=== PATIENT | male | born 1935 | race Caucasian/White ===

== ENCOUNTER 2017-01-06 17:35 | Emergency (ER) | payer MEDICARE, OTHER ==
[2017-01-06] MEDS ORDERED: 0.9 % SODIUM CHLORIDE 1,000 ML IV ONE (18:46)
[2017-01-06 19:04] LABS: eGFR (African) 41; eGFR (Non-African) 34
[2017-01-06 19:45] LABS: BASOPHILS % 0.2 (0.0-1.5); EOSINOPHILS % 8.7 % (0.0-6.8); MEAN CORPUSCULAR HEMOGLOBIN 28.4 pg (28.0-34.0); MONOCYTES # 0.9 # k/uL (0.0-0.9); MONOCYTES % 10.6 % (0.0-11.0); NEUTROPHILS # 5.3 # k/uL (1.4-7.7)
[2017-01-06] MEDS ORDERED: LORazepam 2 MG/ML VIAL ONE (21:04)
[2017-01-06] MEDS ORDERED: HALOPERIDOL LACTATE 5 MG/ML VIAL IM ONE (21:05)
[2017-01-06] MEDS: LORazepam 2 MG/ML VIAL IVP ONE (21:15)
[2017-01-06] MEDS: HALOPERIDOL LACTATE 5 MG/ML VIAL IM ONE ×2 (21:15→21:30)
[2017-01-06] MEDS: 0.9 % SODIUM CHLORIDE 1,000 ML IV SCH (21:19)
--- NOTE | 2017-01-06 21:45 | ED Physician Documentation ---
Psychological Disorders - HISTORIAN Historian: patient, child (nephews) - HPI Stated Complaint: hallucinations and aggressive behavior Chief Complaint: Psychological Disorder Additional Information: past 2-3 days more confused hostile w/hallucinations Onset: days ago (2) Duration: intermittent Intent: wants to escape. denies: prior thoughts of suicide Severity: mild, moderate (occasionally abusive to nursing staff. 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 pt denies c/o-remains confused picks at clothing gets out of bed wanders plays w/equipment in ed room./ occasionally hostile to nephews when they try to control him) EYES/ENT: none CVS/RESP: none GI/: denies: nausea, vomiting, abdominal pain, problems urinating MS/SKIN/LYMPH: denies: joint pain, leg swelling, rash - PAST HX Psychiatric problems: depression, psychiatric problems Lung, Cardiac, DM: asthma (DEMENTIA CVA HYPERLIPIDEMIA). denies: A-Fib Allergies/Adverse Reactions: Allergies Allergy/AdvReac Type Severity Reaction Status Date / Time No Known Allergies Allergy Verified 01/06/17 20:09 Home Medications: Ambulatory Orders Medication Instructions Recorded Simvastatin [Simvastatin] 40 mg PO DAILY 06/12/14 Meloxicam [Mobic] 7.5 mg PO DAILY 09/23/16 Docusate Sodium [Colace] 100 mg PO BID 01/06/17 Haloperidol [Haldol] 1 mg PO BID #60 tablet 01/06/17 LORazepam [Ativan] 0.5 mg PO Q4 PRN 01/06/17 Melatonin [Melatonin] 5 mg PO HS 01/06/17 Polyethylene Glycol 3350 [Miralax] 17 gm PO D PRN 01/06/17 QUEtiapine FUMARATE [Seroquel] 12.5 mg PO BID 01/06/17 Warfarin Sodium [Coumadin] 2.5 mg PO [id number] 01/06/17 Warfarin Sodium [Coumadin] 5 mg PO SAT18 01/06/17 Warfarin Sodium [Coumadin] 5 mg PO HENDERSON 01/06/17 - Social HX Smoking History: non-smoker Marital Status: single (NEVER STD DETERIORATION APPROX 1-2 YRS AGO IN 2- 3 [facility]. GRADUAL DETERIORATION) Drug Use: none - Family HX Family HX: denies: other - VITAL SIGNS Vital Signs: Vital Signs Temp Pulse Resp BP Pulse Ox 98.5 F 85 16 116/71 98 01/06/17 18:13 01/06/17 18:13 01/06/17 18:13 01/06/17 18:13 01/06/17 18:13 - REVIEWED ASSESSMENTS Nursing Assessment Reviewed: Yes Vitals Reviewed: Yes ED Results Lab/Radiology - Lab Results Lab Results: Lab Results 01/06/17 01/06/17 01/06/17 19:41 19:36 18:30 WBC 8.10 K/ul K/ul (4.00-12.00) RBC 4.40 M/ul M/ul (3.90-5.20) Hgb 12.5 g/dL g/dL (12.0-18.0) Hct 40.2 % % (37.0-53.0) MCV 91.3 fl fl (80.0-100.0) MCH 28.4 pg pg (28.0-34.0) MCHC 31.2 g/dL g/dL (30.0-36.0) RDW 13.7 % % (11.3-14.3) Plt Count 158 K/mm3 K/mm3 (130-400) Neut % (Auto) 65.3 % % (39.0-79.0) Lymph % (Auto) 12.6 % L % (16.0-50.0) [place] % (Auto) 10.6 % % (0.0-11.0) Eos % (Auto) 8.7 % H % (0.0-6.8) Baso % (Auto) 0.2 (0.0-1.5) Neut # 5.3 # k/uL # k/uL (1.4-7.7) Lymph # 1.0 # k/uL # k/uL (0.6-4.0) [place] # 0.9 # k/uL # k/uL (0.0-0.9) Eos # 0.7 # k/uL H # k/uL (0.0-0.6) Baso # 0.0 # k/uL # k/uL (0.0-0.5) Reactive Lymphs % 2.5 % % (0.0-5.0) Reactive Lymphs # 0.2 # k/uL # k/uL (0.0-0.8) PT 19.7 Seconds H Seconds (9.7-11.5) INR 1.8 H (0.9-1.1) Sodium 140 mmol/L mmol/L (136-145) Potassium 5.4 mmol/L H mmol/L (3.5-5.0) Chloride 108 mmol/L mmol/L (98-110) Carbon Dioxide 24 mmol/L mmol/L (20-32) BUN 43 mg/dL H mg/dL (10-26) Creatinine 2.0 mg/dL H mg/dL (0.4-1.5) Estimated Creat Clear 23 Est GFR ( Amer) 41 L (60 - ) Est GFR (Non-Af Amer) 34 L (60 - ) Glucose 100 mg/dL H mg/dL (70-99) Calcium 9.5 mg/dL mg/dL (8.5-10.5) Total Bilirubin 0.8 mg/dL mg/dL (0.2-1.2) AST 23 U/L U/L (0-41) ALT 14 U/L U/L (0-45) Alkaline Phosphatase 63 U/L U/L (46-116) Total Protein 7.6 g/dL g/dL (6.0-8.5) Albumin 4.7 g/dL g/dL (3.0-5.5) Ethyl Alcohol < 10.0 MG/DL MG/DL (<10.0) - Radiology Radiology Impressions: CXCXR =NO ACUTE DISEASE VERY MARKED DORSAL KYPHOSIS-PROBABLE HYPER INFLATION COPD - Orders Orders: ED Orders Category Date Time Status Place Saline Lock/IV Now Care 01/06/17 18:29 Active CHEST P.A.&LAT 2 VIEWS [RAD] Stat Exams 01/06/17 Taken ARTERIAL BLOOD GAS Stat Lab 01/06/17 18:32 Ordered CBC/PLATELET/DIFF Routine Lab 01/06/17 19:41 Completed CMP Routine Lab 01/06/17 18:30 Completed DRUG SCREEN URINE MEDICAL ONLY Routine Lab 01/06/17 Ordered ETHANOL MEDICAL USE ONLY Routine Lab 01/06/17 18:30 Completed PT-INR Routine Lab 01/06/17 19:36 Completed URINALYSIS Stat Lab 01/06/17 Ordered 0.9 % Sodium Chloride [Normal Saline] 1,000 ml Med 01/06/17 18:30 Ordered IV 1T Haloperidol Lactate [Haldol] Med 01/06/17 21:04 Discontinued 1 mg IM NOW ONE Haloperidol Lactate [Haldol] Med 01/06/17 21:27 Discontinued 1 mg IM NOW ONE Haloperidol Lactate [Haldol] Med 01/06/17 21:05 Discontinued 5 mg IM .STK-MED ONE LORazepam [Ativan] Med 01/06/17 21:03 Discontinued 0.5 mg IVP NOW ONE LORazepam [Ativan] Med 01/06/17 22:09 Once 1 mg PO NOW ONE LORazepam [Ativan] Med 01/06/17 21:04 Discontinued 2 mg .ROUTE .STK-MED ONE EKG WITH COMPARISON Stat Ther 01/06/17 Ordered Psych Physical Exam - Physical Exam General Appearance: mild distress, anxious. No: uncooperative for exam ENT: nml ENT inspection Eyes: PERRL Mental Status: slow responsiveness, disoriented, depressed affect / mood (PT DENIES ANY C/O WHATSOEVER). No: suicidal ideation Orientation: No: uncooperative (SOMEWHAT BUT CONTROLLABLE HERE -- SPOKE W/[facility] NURSE AND HE HAS BECOME PROGRESSIVELY MMORE AGGRESSIVE PAST 2/3 DAYS BUT REPORTEDLY HAS HAD SIMILAR PREV EPISODES - ONCE W/UTI) Sensory, Motor: nml motor response Neck/Back: other (SITS W/HEAD SHOULDERS SLUMPED SIG TOWARD FLOOR) Respiratory: no resp distress, chest non-tender, breath sounds normal CVS: reg rate & rhythm, heart sounds normal Abdomen: non-tender Skin: warm/dry, normal color. No: cyanosis, diaphoresis, jaundice Extremities: non-tender Discharge Clincal Impression: ADVANCING DEMENTIA, INTERMITTENT HOSTILITY AND AGGRESSIVE BE Prescriptions: Haloperidol [Haldol] 1 mg PO BID #60 tablet Referrals: Marvin Danielle MD [Primary Care Provider] - 2 Days Home Medications: Ambulatory Orders Simvastatin [Simvastatin] 40 mg PO DAILY 06/12/14 Meloxicam [Mobic] 7.5 mg PO DAILY 09/23/16 Docusate Sodium [Colace] 100 mg PO BID 01/06/17 Haloperidol [Haldol] 1 mg PO BID #60 tablet 01/06/17 LORazepam [Ativan] 0.5 mg PO Q4 PRN 01/06/17 Melatonin [Melatonin] 5 mg PO HS 01/06/17 Polyethylene Glycol 3350 [Miralax] 17 gm PO D PRN 01/06/17 QUEtiapine FUMARATE [Seroquel] 12.5 mg PO BID 01/06/17 Warfarin Sodium [Coumadin] 2.5 mg PO [id number] 01/06/17 Warfarin Sodium [Coumadin] 5 mg PO SAT18 01/06/17 Warfarin Sodium [Coumadin] 5 mg PO HENDERSON 01/06/17 Comments: JESSICA COREGINO W/ N/H NURSE FAMILY AND DR DANIELLE.. WILL TNSF BACK TO [facility] SEROQUEL ADD LO DOSE HALDOL Condition: Fair Disposition: 01 HOME, SELF-CARE Decision to Admit: NO Decision Time: 22:12
[2017-01-06] MEDS: LORazepam 1 MG TABLET PO ONE (22:19)
[2017-01-06 23:13] VITALS: BP 138/73
[2017-01-07 07:28] LABS: AMPHETAMINE NEGATIVE ng/mL (<1000); BARBITURATES NEGATIVE ng/mL (<300); CANNABINOIDS NEGATIVE ng/mL (<50); COCAINE NEGATIVE ng/mL (<150); METHAMPHETAMINE NEGATIVE ng/mL (<1000); METHYLENEDIOXYMETHAMPHETAMINE NEGATIVE ng/mL (<500)
[2017-01-07 07:34] LABS: APPEARANCE,URINE CLEAR (CLEAR); COLOR,URINE YELLOW (YELLOW); OCCULT BLOOD,URINE TRACE-INTACT (NEGATIVE); PH URINE 5.5 (5.0 - 8.0); UROBILINOGEN URINE 0.2 Eu (0.2-1.0)
--- NOTE | 2017-01-07 15:47 | Diagnostic Imaging Report ---
ASTON LOPEZ [facility] [address] [facility] [address] [address] Report Submission Date: Jan 06, 2017 7:28:26 PM GALLERY ASSISTANT Patient Study Name: CHRISTIANO DAVIS Date: Jan 06, 2017 7:07:27 PM GALLERY ASSISTANT Modality Type: CR Gender: M Description: CHEST : 33 Institution: [facility] Physician: ASTON LOPEZ HISTORY: 81-year-old male with cough and confusion. COMPARISON: None available. TECHNIQUE: AP and lateral views of the chest were performed. FINDINGS: The right lung apex is not completely evaluated secondary to overlying head and neck tissues. The lungs are hyperexpanded. No pneumothorax , consolidative infiltrates, pleural effusions, or pulmonary edema. The heart is borderline enlarged. There is thoracic spondylosis and exaggerated thoracic kyphosis, without evidence of thoracic spine fracture. IMPRESSION: 1. Pulmonary hyperexpansion without evidence of acute intrathoracic process. 2. Thoracic spondylosis and exaggerated thoracic kyphosis. Electronically signed on Jan 06, 2017 7:28:26 PM GALLERY ASSISTANT by: David VELEZ
== END 2017-01-06 22:35 | disposition home or self-care (01) ==
LOC: ED 17:35
DX: F03.91 Unspecified dementia, unspecified severity, with behavioral disturbance (principal)
CPT/HCPCS: 71020; 80053; 81002; 85025; 85610; G0480; G0481; J1630; J2060; J7030; 36600; 80320; 80377; 96372; 96374; 99283; S1016

== ENCOUNTER 2017-03-03 08:48 | Emergency (ER) | payer MEDICARE, OTHER ==
[2017-03-03] MEDS ORDERED: LORazepam 1 MG TABLET PO ONE ×2 (09:50→09:58)
--- NOTE | 2017-03-03 10:02 | ED Physician Documentation ---
Fall - HISTORIAN Historian: patient, child - HPI Chief Complaint: Fall Additional Information: pt fell in bath room last noct w bleeding rt lat head and rt ear-VERY SMALL LAC BOTH POSN BUT INTERMITTENT BLEEDING. pt dementia and combative but nephews asst w/ calming and restraint while cleanse betadine and dermabond to both head and ear. pt rec tetanus immun few weeks ago from prev falls. Onset: yesterday Where: home Context: lost balance r: mild Associated Symptoms:: no loss of consciousness Location of Pain/Injury: head, other (rt ear) Injury to Right Extremity: none Injury to Left Extremity: none Further Comments: no - ROS CONST: other (dementia prev cva combative blind) NEURO: anxiety. denies: dizziness MS/SKIN/LYMPH: denies: weakness, numbness, neck pain CVS/RESP: none. denies: shortness of breath - PAST HX Past History: other (htn dementia combative and un cooperative-prev on haldol but now on ativan w/ only mild control. pt also had prev CVA) Allergies/Adverse Reactions: Allergies Allergy/AdvReac Type Severity Reaction Status Date / Time No Known Allergies Allergy Verified 01/06/17 20:09 Home Medications: Ambulatory Orders Medication Instructions Recorded Simvastatin [Simvastatin] 40 mg PO DAILY 06/12/14 Meloxicam [Mobic] 7.5 mg PO DAILY 09/23/16 Docusate Sodium [Colace] 100 mg PO BID 01/06/17 Haloperidol [Haldol] 1 mg PO BID #60 tablet 01/06/17 LORazepam [Ativan] 0.5 mg PO Q4 PRN 01/06/17 Melatonin [Melatonin] 5 mg PO HS 01/06/17 Polyethylene Glycol 3350 [Miralax] 17 gm PO D PRN 01/06/17 QUEtiapine FUMARATE [Seroquel] 12.5 mg PO BID 01/06/17 Warfarin Sodium [Coumadin] 2.5 mg PO [id number] 01/06/17 Warfarin Sodium [Coumadin] 5 mg PO SAT18 01/06/17 Warfarin Sodium [Coumadin] 5 mg PO HENDERSON 01/06/17 - SOCIAL HX Smoking History: non-smoker Alcohol Use: none Drug Use: none - FAMILY HX Family History: no significant history - VITAL SIGNS Vital Signs: Vital Signs Temp Pulse Resp BP Pulse Ox 138/73 01/06/17 23:06 - REVIEWED ASSESSMENTS Nursing Assessment Reviewed: Yes Vitals Reviewed: Yes Procedures Wound Location: head, other (rt ear as aforementioned) Wound's Depth, Shape: superficial, stellate Wound Explored: cleanse w/ betadine Betadine Prep?: Yes Wound Repaired With: Dermabond Sterile Dressing Applied?: No Splint Applied?: No Sling Applied?: No ED Results Lab/Radiology - Orders Orders: ED Orders Category Date Time Status Skin Adhesive NOW Care 03/03/17 10:00 Ordered URINALYSIS Routine Lab 03/03/17 Ordered LORazepam [Ativan] Med 03/03/17 09:50 Discontinued 1 mg PO .STK-MED ONE LORazepam [Ativan] Med 03/03/17 09:58 Once 1 mg PO NOW ONE Fall Physical Exam - Physical Exam General Appearance: mild distress, anxious (CONFUSED AND COMBATIVER BUT FAIR CONTROL W/ASST NEPHEW) Head: No: no obvious injury (0.7 triangular lac rt lat head plus 0.5 cm lac lat crease rt ear helix) Neck: non-tender, painless ROM, trachea midline. No: decreased ROM, limited ROM , pain with neck movement ENT: nml external inspection Resp/CVS: chest non-tender, no ecchymosis, breath sounds nml, no resp. distress , heart sounds nml. 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 No: mood/affect nml Skin: color nml, no rash. No: cyanosis, diaphoresis, pallor Back: normal inspection - [place] Coma Score Eyes Open: Spontaneous Speech: Confused Motor: Withdraws to Pain Discharge Clincal Impression: Dementia, Fall Home Medications: Ambulatory Orders Simvastatin [Simvastatin] 40 mg PO DAILY 06/12/14 Meloxicam [Mobic] 7.5 mg PO DAILY 09/23/16 Docusate Sodium [Colace] 100 mg PO BID 01/06/17 Haloperidol [Haldol] 1 mg PO BID #60 tablet 01/06/17 LORazepam [Ativan] 0.5 mg PO Q4 PRN 01/06/17 Melatonin [Melatonin] 5 mg PO HS 01/06/17 Polyethylene Glycol 3350 [Miralax] 17 gm PO D PRN 01/06/17 QUEtiapine FUMARATE [Seroquel] 12.5 mg PO BID 01/06/17 Warfarin Sodium [Coumadin] 2.5 mg PO [id number] 01/06/17 Warfarin Sodium [Coumadin] 5 mg PO SAT18 01/06/17 Warfarin Sodium [Coumadin] 5 mg PO HENDERSON 01/06/17 Comments: fall w/ laceration rt lat head and rt ear Condition: Good Disposition: 01 HOME, SELF-CARE Decision to Admit: NO Decision Time: 10:20
[2017-03-03 10:08] VITALS: BP 144/79
== END 2017-03-03 10:19 | disposition home or self-care (01) ==
LOC: ED 08:48
DX: S01.311A Laceration without foreign body of right ear, initial encounter (principal); F03.91 Unspecified dementia, unspecified severity, with behavioral disturbance; W19.XXXA Unspecified fall, initial encounter; Z91.81 History of falling; Y93.9 Activity, unspecified; Y99.9 Unspecified external cause status
CPT/HCPCS: 99284

== ENCOUNTER 2017-03-03 12:58 | Emergency (ER) | payer MEDICARE, OTHER ==
[2017-03-03] MEDS ORDERED: HALOPERIDOL LACTATE 5 MG/ML VIAL IM ONE ×4 (13:14→13:42)
[2017-03-03] MEDS ORDERED: LORazepam 2 MG/ML VIAL ONE (14:29)
[2017-03-03 14:40] LABS: BASOPHILS % 0.3 (0.0-1.5); EOSINOPHILS % 9.9 % (0.0-6.8); MEAN CORPUSCULAR HEMOGLOBIN 29.4 pg (28.0-34.0); MEAN CORPUSCULAR VOLUME 92.3 fl (80.0-100.0); MONOCYTES % 7.4 % (0.0-11.0); NEUTROPHILS # 5.6 # k/uL (1.4-7.7)
[2017-03-03] MEDS ORDERED: LORazepam 2 MG/ML VIAL IVP ONE ×2 (14:57→15:00)
[2017-03-03] MEDS ORDERED: 0.9 % SODIUM CHLORIDE 1,000 ML IV ONE ×2 (15:22→15:23)
--- NOTE | 2017-03-03 15:39 | Diagnostic Imaging Report ---
[facility] [address] [facility] [address] Report Submission Date: Mar 03, 2017 3:30:00 PM CDT Patient Study Name: CHRISTIANO DAVIS Date: Mar 03, 2017 3:10:01 PM CDT Modality Type: CT\SR Gender: M Description: CT BRAIN W/O CONTRAST : 33 Institution: [facility] Physician: ASTON LOPEZ CT brain noncontrast Date of study: 03 March 2017 CLINICAL HISTORY: MENTAL STATUS CHANGES, FALL WITH HEAD INJURY MOTION ARTIFACT DUE TO PATIENT INABILITY TO HOLD STILL (Hx) / MSC, FALL (DICOM Hx) TECHNIQUE: 5 mm contiguous axial images of the brain, noncontrast. FINDINGS: There is no evidence of intracranial mass effect, hemorrhage, or acute hydrocephalus. The lateral ventricles are symmetrical and the 4th ventricle is midline without shift. No acute brain parenchymal changes or extra-axial fluid collections are identified. Cerebral atrophy, cerebellar atrophy and white matter gliosis is present. The ventricles are enlarged. A lacunar infarct is present in the left caudate nucleus which is probably old. The calvarium is intact. Ethmoid sinusitis is present. Maxillary sinus mucosal thickening. Frontal sinus mucosal thickening is present. The mastoid air cells are clear. Motion artifact degrades several images. IMPRESSION: No acute intracranial process.. 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
--- NOTE | 2017-03-03 15:57 | ED Physician Documentation ---
Altered Mental Status - HISTORIAN Historian: patient, other (nephew) - HPI Stated Complaint: continued aggitation and confusion Chief Complaint: Altered Mental Status Additional Information: pt ret to [facility] earlier todfay became more agitated nurse called dr bhatt he rec ret to ed for brain scan to r/o new acute episode Onset: minutes (this am for fall and then ret to [facility]) Last known Well Date: 03/03/13 Last Known Well Time: 17:00 Last known Well Code/Unknown Code: Unknown Character of Altered Mental Status: confused, combative (at times), agitated Context: prison resident Cognition is Usually: alert but confused Gait is Usually: walks w/ assistance only - ROS EYES/ENT: problems with vision CVS/RESP: none. denies: shortness of breath, palpitations GI/: none MS/SKIN/LYMPH: none NEURO/PSYCH: none - PAST HX Past History: none (no chg from this am), other (includes a fib blind dementia htn renal insufficiency) Allergies/Adverse Reactions: Allergies Allergy/AdvReac Type Severity Reaction Status Date / Time No Known Allergies Allergy Verified 03/03/17 12:59 Home Medications: Ambulatory Orders Medication Instructions Recorded Simvastatin [Simvastatin] 40 mg PO DAILY 06/12/14 Meloxicam [Mobic] 7.5 mg PO DAILY 09/23/16 Docusate Sodium [Colace] 100 mg PO BID 01/06/17 LORazepam [Ativan] 0.5 mg PO Q4 PRN 01/06/17 Melatonin [Melatonin] 5 mg PO HS 01/06/17 Polyethylene Glycol 3350 [Miralax] 17 gm PO D PRN 01/06/17 QUEtiapine FUMARATE [Seroquel] 12.5 mg PO BID 01/06/17 Warfarin Sodium [Coumadin] 2.5 mg PO [id number] 01/06/17 Warfarin Sodium [Coumadin] 5 mg PO SAT18 01/06/17 Warfarin Sodium [Coumadin] 5 mg PO HENDERSON 01/06/17 - SOCIAL HX Smoking History: non-smoker Alcohol Use: none Drug Use: none - FAMILY HX Family History: no significant history - VITAL SIGNS Vital Signs: Vital Signs Temp Pulse Resp BP Pulse Ox 106 H 144/79 94 03/03/17 15:30 03/03/17 10:19 03/03/17 15:30 - REVIEWED ASSESSMENTS Nursing Assessment Reviewed: Yes Vitals Reviewed: Yes ED Results Lab/Radiology - Lab Results Lab Results: Lab Results 03/03/17 03/03/17 14:30 14:30 WBC 8.00 K/ul K/ul (4.00-12.00) RBC 4.99 M/ul M/ul (3.90-5.20) Hgb 14.7 g/dL g/dL (12.0-18.0) Hct 46.1 % % (37.0-53.0) MCV 92.3 fl fl (80.0-100.0) MCH 29.4 pg pg (28.0-34.0) MCHC 31.9 g/dL g/dL (30.0-36.0) RDW 14.3 % % (11.3-14.3) Plt Count 105 K/mm3 L K/mm3 (130-400) Neut % (Auto) 70.3 % % (39.0-79.0) Lymph % (Auto) 9.7 % L % (16.0-50.0) [place] % (Auto) 7.4 % % (0.0-11.0) Eos % (Auto) 9.9 % H % (0.0-6.8) Baso % (Auto) 0.3 (0.0-1.5) Neut # 5.6 # k/uL # k/uL (1.4-7.7) Lymph # 0.8 # k/uL # k/uL (0.6-4.0) [place] # 0.6 # k/uL # k/uL (0.0-0.9) Eos # 0.8 # k/uL H # k/uL (0.0-0.6) Baso # 0.0 # k/uL # k/uL (0.0-0.5) Reactive Lymphs % 2.4 % % (0.0-5.0) Reactive Lymphs # 0.2 # k/uL # k/uL (0.0-0.8) Sodium 138 mmol/L mmol/L (136-145) Potassium 5.5 mmol/L H mmol/L (3.5-5.0) Chloride 108 mmol/L mmol/L (98-110) Carbon Dioxide 30 mmol/L mmol/L (20-32) BUN 50 mg/dL H mg/dL (10-26) Creatinine 1.6 mg/dL H mg/dL (0.4-1.5) Estimated Creat Clear 36 Est GFR ( Amer) 53 L (60 - ) Est GFR (Non-Af Amer) 44 L (60 - ) Glucose 99 mg/dL mg/dL (70-99) Calcium 9.4 mg/dL mg/dL (8.5-10.5) Total Bilirubin 1.2 mg/dL mg/dL (0.2-1.2) AST 22 U/L U/L (0-41) ALT 13 U/L U/L (0-45) Alkaline Phosphatase 58 U/L U/L (46-116) Total Protein 7.3 g/dL g/dL (6.0-8.5) Albumin 4.5 g/dL g/dL (3.0-5.5) - Orders Orders: ED Orders Category Date Time Status Continuous EKG monitoring Q30M Care 03/03/17 13:47 Active Continuous Pulse Oximetry Q30M Care 03/03/17 13:[address] Saline Lock/IV Now Care 03/03/17 13:[address] BRAIN W/O CONTRAST Stat Exams 03/03/17 13:47 Completed CBC/PLATELET/DIFF Routine Lab 03/03/17 14:30 Completed CMP Routine Lab 03/03/17 14:30 Completed 0.9 % Sodium Chloride [Normal Saline] 1,000 ml Med 03/03/17 15:22 Discontinued IV .STK-MED 0.9 % Sodium Chloride [Normal Saline] 1,000 ml Med 03/03/17 15:23 Active IV NOW Haloperidol Lactate [Haldol] Med 03/03/17 13:14 Discontinued 5 mg IM .STK-MED ONE Haloperidol Lactate [Haldol] Med 03/03/17 13:42 Discontinued 5 mg IM .STK-MED ONE Haloperidol Lactate [Haldol] Med 03/03/17 13:22 Discontinued 5 mg IM NOW ONE Haloperidol Lactate [Haldol] Med 03/03/17 13:42 Discontinued 5 mg IM NOW ONE LORazepam [Ativan] Med 03/03/17 14:57 Discontinued 1 mg IVP NOW ONE LORazepam [Ativan] Med 03/03/17 15:00 Discontinued 1 mg IVP NOW ONE LORazepam [Ativan] Med 03/03/17 14:29 Discontinued 2 mg .ROUTE .STK-MED ONE EKG WITH COMPARISON Stat Ther 03/03/17 13:47 Ordered Altered Mental Status Physical - Physical Exam General Appearance: moderate distress, anxious (occasionally combative wquite restless) Neuro/Psych: other (dementia) alert, eyes open No: forehead involved, tongue deviation (R), tongue deviation (L) Cerebellar Exam: abnml [id number], abnml gait Peripheral Exam: reflexes nml. No: weakness HEENT: ERIC, EOM's intact, no apparent trauma Neck: normal inspection, supple. No: lymphadenopathy Respiratory: no resp distress, breath sounds normal CVS: reg rate & rhythm, heart sounds normal Abdomen: non-tender, no distention Skin: warm/dry, normal color. No: cyanosis, diaphoresis, jaundice Extremities: non-tender, normal range of motion, no evidence of injury, no edema Discharge Clincal Impression: no acute neurological defect-dementia- Home Medications: Ambulatory Orders Simvastatin [Simvastatin] 40 mg PO DAILY 06/12/14 Meloxicam [Mobic] 7.5 mg PO DAILY 09/23/16 Docusate Sodium [Colace] 100 mg PO BID 01/06/17 LORazepam [Ativan] 0.5 mg PO Q4 PRN 01/06/17 Melatonin [Melatonin] 5 mg PO HS 01/06/17 Polyethylene Glycol 3350 [Miralax] 17 gm PO D PRN 01/06/17 QUEtiapine FUMARATE [Seroquel] 12.5 mg PO BID 01/06/17 Warfarin Sodium [Coumadin] 2.5 mg PO [id number] 01/06/17 Warfarin Sodium [Coumadin] 5 mg PO SAT18 01/06/17 Warfarin Sodium [Coumadin] 5 mg PO HENDERSON 01/06/17 Comments: no acute chg to ct. will rt to [facility]-c[facility] Condition: Fair Disposition: 01 HOME, SELF-CARE Decision to Admit: NO Decision Time: 16:10
[2017-03-03 16:35] VITALS: BP 161/93
[2017-03-04 05:46] LABS: APPEARANCE,URINE CLEAR (CLEAR); COLOR,URINE YELLOW (YELLOW); OCCULT BLOOD,URINE 1+ (NEGATIVE); PH URINE 5.5 (5.0 - 8.0); UROBILINOGEN URINE 0.2 Eu (0.2-1.0)
== END 2017-03-03 16:32 | disposition home or self-care (01) ==
LOC: ED 12:58
DX: F03.90 Unspecified dementia, unspecified severity, without behavioral disturbance, psychotic disturbance, mood disturbance, and anxiety (principal)
CPT/HCPCS: 70450; 80053; 81002; 85025; 96361; 96372; 96374; 96376; 99283; 99284; J1630; J2060; J7030; S1016